=== PATIENT | female | born 1985 | race African-American/Black ===

== ENCOUNTER → 2019-07-07 | Outpatient (CLI) | payer OTHER ==
[~2019-07-07] MED LIST: CYMB1CAP4 PO; FISH1000 PO; GABA600T4 PO; MULTCAP PO; PERC5TAB12 PO; PROBCAP14 PO; VITAD1000T PO
== END ==
LOC: M LABSMTC 09:54 → EDUNIT# 10:15
PROVIDERS: ATTEND Anesthesiology
DX: Z03.818 Encounter for observation for suspected exposure to other biological agents ruled out (principal)

== ENCOUNTER 2019-07-10 07:29 | Day surgery (SDC) | payer OTHER ==
[2019-07-10] VITALS (7 sets, daily range): BP systolic 133–159; BP diastolic 68–73
[~2019-07-10] VITALS: Ht 175.3 cm; Wt 90.3 kg
[~2019-07-10 07:29] MED LIST changes: +LR 1,000 ML IV ONE; -PERC5TAB12 PO
[2019-07-10] MEDS ORDERED: ONDANSETRON 4MG/2ML VIAL As Ordered ONE (08:27)
[2019-07-10] MEDS ORDERED: LIDOCAINE 2% 100MG/5ML SDV (FOR ANES.) As Ordered ONE (08:27)
[2019-07-10] MEDS ORDERED: dexameTHASONE 4 MG/ML 1ML VIAL (J1100 PER 1MG) As Ordered ONE (08:27)
[2019-07-10] MEDS ORDERED: propofoL 200 MG/20 ML VIAL As Ordered ONE (08:27)
[2019-07-10] MEDS ORDERED: fentaNYL 250 MCG/5 ML INJECTION (J3010) As Ordered ONE (08:27)
[2019-07-10] MEDS ORDERED: ROCURONIUM BROMIDE 50 MG/5 ML VIAL As Ordered ONE ×2 (08:27→10:43)
[2019-07-10] MEDS ORDERED: MIDAZOLAM INJ 2MG/2ML VIAL (J2250 PER 1MG) As Ordered ONE (08:27)
[2019-07-10] MEDS ORDERED: fentaNYL 100 MCG/2 ML INJECTION (J3010) As Ordered ONE (09:12)
[2019-07-10] MEDS ORDERED: GABAPENTIN 300 MG CAP PO ONE ×2 (09:45→16:00)
[2019-07-10] MEDS ORDERED: ceFAZolin SOD 2 GM in IV 1 EA IV ONE ×2 (09:45→16:00)
[2019-07-10] MEDS ORDERED: PERCOCET 5MG/325MG TAB PO ONE (09:45)
[2019-07-10] MEDS ORDERED: CelecoXIB 400 MG CAP PO ONE (09:45)
[2019-07-10] MEDS ORDERED: SEVOFLURANE INHAL SOLN 250 ML BTL As Ordered ONE (10:04)
[2019-07-10] MEDS ORDERED: BACITRACIN PWD 50,000 UNITS VIAL As Ordered ONE (10:08)
[2019-07-10] MEDS ORDERED: THROMBIN SOLN 20,000 UNITS KIT As Ordered ONE (10:08)
[2019-07-10] MEDS ORDERED: BUPIVACAINE/EPIN 0.25% 30 ML VIAL As Ordered ONE (10:08)
[2019-07-10] MEDS ORDERED: BUPIVACAINE HCL 0.25% 10ML VIAL As Ordered ONE (10:22)
[2019-07-10] MEDS ORDERED: BUPIVACAINE LIPOSOME/PF 1.3% 20ML VIAL (13.3MG/ML)(EXPAREL)(C9290 PER1MG) As Ordered ONE (10:23)
[2019-07-10] MEDS ORDERED: ACETAMINOPHEN 1000MG 100ML IV BTL (OFIRMEV) (J0131 PER 10MG) As Ordered ONE (10:39)
[2019-07-10] MEDS ORDERED: SUGAMMADEX SODIUM 500 MG/5 ML VIAL (BRIDION) As Ordered ONE (10:39)
[2019-07-10] MEDS ORDERED: HYDROmorphone HCL 2 MG/ML 1ML VIAL (J1170) As Ordered ONE (10:48)
[2019-07-10] MEDS ORDERED: ePHEDrine SULFATE 25 MG/5 ML(5MG/ML) SYRINGE As Ordered ONE (12:06)
[2019-07-10] MEDS ORDERED: METOCLOPRAMIDE INJ 10MG/2ML VIAL (J2765 PER 1) IV PRN (13:45)
[2019-07-10] MEDS ORDERED: PERCOCET 5MG/325MG TAB PO PRN ×3 (13:45→14:00)
[2019-07-10] MEDS ORDERED: ONDANSETRON 4MG/2ML VIAL IV PRN (13:45)
[2019-07-10] MEDS ORDERED: MORPHINE 2 MG/ML 1ML VIAL (J2270) IV PRN (13:45)
[2019-07-10] MEDS ORDERED: LR 1,000 ML IV SCH (13:45)
[2019-07-10] MEDS ORDERED: fentaNYL 100 MCG/2 ML INJECTION (J3010) IV PRN (13:45)
[2019-07-10] MEDS: LR 1,000 ML IV SCH (14:00)
[2019-07-10] MEDS ORDERED: PROMETHAZINE INJ 25 MG/ML VIAL (J2550) IV PRN (14:00)
--- NOTE | 2019-07-10 15:23 | REP ---
REASON: L5-S1 laminectomy. Single portable lateral view of the lumbosacral spine shows the probe to be at the L5-S1 level posteriorly. Electronically Signed by Pavan Cloud DO 07/10/2019 04:06 P
[2019-07-10] MEDS ORDERED: PERC5TAB12 PO (15:51)
[2019-07-10] MEDS ORDERED: CelecoXIB (CeleBREX) 100 MG CAP PO ONE (16:00)
[2019-07-11 02:00] VITALS: BP 133/72
[2019-07-11 06:00] VITALS: BP 137/73
[2019-07-11 10:00] VITALS: BP 147/76
[2019-07-11] MEDS: LR 1,000 ML IV SCH ×2 (10:00)
--- NOTE | 2019-07-14 11:16 | RO ---
DATE OF PROCEDURE: 07/10/2019 PREOPERATIVE DIAGNOSIS: Right lower extremity radiculopathy secondary to chronic disc herniation. POSTOPERATIVE DIAGNOSIS: Right lower extremity radiculopathy secondary to chronic disc herniation. PROCEDURE PERFORMED: Right L5-S1 microdiscectomy. Modifier 22 will be appended because of increased difficulty due to adhesions and scarring, extending the surgical procedure. SURGEON: Jack Ya MD POULTRY HUSBANDMAN: JENN Weaver ANESTHESIA: General. ESTIMATED BLOOD LOSS: 50 mL, replaced with crystalloid. No complications. INDICATIONS: Kady Fairbanks is a 33-year-old female, who has had more than a year of symptoms. Had an MRI in March of 2018 that reflected a relatively massive disc herniation on the right side at L5-S1 causing deformity of "the entire right side of the spinal canal." More recent MRI shows significant resorption of much of the disc material but retained low signal disc material on the right side impinging on the traversing S1 nerve root along with nerve studies suggesting right subacute L5 radiculopathy. Consent reviewed in detail including a al discussion of the pathology involved, the procedure proposed, alternatives including doing nothing, and risks including, but not limited to, incomplete or no relief of symptoms, specifically with the chronicity of the complaint and the density of the numbness and the significant resorption of a relatively massive disc herniation, there may be nerve damage that does not get better. The patient understands. We also talked about risks of infection, need for more surgery, bleeding, blood loss, blood clots, other issues, and the patient wants to proceed. OPERATIVE COURSE: Identified in holding area. Site, side verified. Brought to the operating room. Once anesthesia was administered, she was positioned on the Yunior frame. Yunior frame elevated. Knees slightly flexed. Once I and the elevator constructor were comfortable with the patient's positioning, she was sterilely prepped, draped in usual fashion. I stood on the patient's right side. Mr. Thorne stood on the patient's left side. The line of incision was infiltrated with 0.25% Marcaine with epinephrine. I made the incision with a #10 blade, developed down through skin and subcuticular tissues to the posterior lumbar fascia, which was sharply divided off of the spinous processes of 5 and 1. Dissection continued using Bovie cautery over the lamina of 5. A divot was drilled in the lamina of 5, and a Swain-Jeremy probe was placed in the divot. A cross-table lateral x-ray was taken to verify our level. Once this was accomplished we irrigated. I placed the retractors and further flushed out the dissection, exposing L5 and S1. We brought in the sterilely draped operative microscope. I looked through oculars on the right side, Mr. Thorne through oculars on the left side. I implemented a right unilateral laminotomy of L5 extending superiorly to the bare area of 5, inferiorly to the bare area of S1. Elevated ligamentum flavum and removed it using Kerrison. This exposed the thecal sac. I attempted to sweep the traversing S1 nerve root medially. However, the S1 nerve root seemed to be elevated and tightly adhesed to posterior longitudinal ligament and disc osteophyte complex. I obtained the Malis dissectors to assist in carefully dissecting the thecal sac away from this adhesed tissue. After careful tedious dissection, I was able to further expose the tissue and access what appeared to be extruded disc material and cartilaginous endplate partially calcified, consistent with the significant chronicity. It was removed using pituitaries as well as Russell pituitaries in piecemeal fashion and needed to be carefully dissected away from soft tissue. Once that was accomplished, I explored around the area. I explored the interspace using the Russell's and regular pituitaries for any additional disc material. Bipolar cautery was utilized for hemostasis as well as thrombin Gelfoam, which was removed. This tedious dissection of a chronically extruded and adhesed disc endplate fragment required additional time in addition to expertise. The additional time at least doubled the normal time required to do this type of surgery, extending the procedure time from the usual 1 hour to approximately 2-1/2 hours. Once we irrigated, we reapproximated posterior lumbar fascia with interrupted stitch, deep dermis with interrupted stitch. Prineo dressing was applied to skin. Exparel had been injected in the soft tissues circumferentially around the wound for perioperative pain management. The patient was able to be then extubated and moved to recovery room in good condition. Mr. Thorne participated in the entirety of the case in the capacity of cutter first.
== END 2019-07-11 12:05 | disposition home or self-care (01) ==
LOC: M SDC 07:29 → M MS5PR 14:35 → M SDC 07-11 12:05
PROVIDERS: ATTEND Orthopaedic Surgery
DX: M51.27 Other intervertebral disc displacement, lumbosacral region (principal); I10 Essential (primary) hypertension; Z79.899 Other long term (current) drug therapy
CPT/HCPCS: 36415; 63030; 72100; 81025; 86850; 86900; 86901; 88304; 96374; C9290; J0131; J0690; J1100; J1170; J2250; J2405; J3010

== ENCOUNTER 2019-12-22 19:19 | Emergency (ER) | payer OTHER ==
[~2019-12-22] VITALS: Ht 175.3 cm; Wt 83.6 kg
[~2019-12-22 19:19] MED LIST changes: +D31000TA2 PO; -LR 1,000 ML IV ONE; +PERC5TAB12 PO; -VITAD1000T PO
[2019-12-22] MEDS ORDERED: CHLO125TA PO (19:35)
[2019-12-22 20:45] LABS: BASO % 0.3 % (0.0-1.0); EOS # 0.1 10^3/uL (0.0-0.5); EOS % 0.8 % (0.0-3.0); HEMATOCRIT 36.7 % (36.0-47.0); HEMOGLOBIN 12.4 g/dl (12.0-15.5); LYMPH # 2.4 10^3/uL (1.5-5.0); LYMPH % 30.7 % (24.0-44.0); MEAN CORPUSCULAR HEMOGLOBIN 30.8 pg (27.0-33.0); MEAN CORPUSCULAR HGB CONC 33.8 g/dl (32.0-36.5); MEAN CORPUSCULAR VOLUME 91.1 fl (80.0-96.0); MONO # 0.4 10^3/uL (0.0-0.8); MONO % 5.5 % (0.0-5.0); NEUTROPHILS % 62.3 % (36.0-66.0); PLATELET COUNT, AUTOMATED 244 10^3/uL (150-450); RED BLOOD COUNT 4.03 10^6/uL (4.00-5.40)
[2019-12-22] MEDS ORDERED: POTA20TA6 PO (21:50)
[2019-12-22 22:00] VITALS: BP 161/92
--- NOTE | 2019-12-23 08:07 | ECGEPIP ---
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
== END 2019-12-22 22:03 | disposition home or self-care (01) ==
LOC: M ED 19:19
DX: R00.2 Palpitations (principal); E87.6 Hypokalemia; I10 Essential (primary) hypertension; Z79.899 Other long term (current) drug therapy

== ENCOUNTER → 2021-02-07 | Outpatient (CLI) | payer OTHER ==
[~2021-02-07] MED LIST changes: +CHLO125TA PO; +GASTROGRAFIN SOLUTION 30ML (Q9963) As Ordered ONE; +ISOVUE-370 76% 100ML VIAL As Ordered ONE; +POTA20TA6 PO
--- NOTE | 2021-02-09 07:12 | REP ---
INDICATION: RUQ PAIN. COMPARISON: None. TECHNIQUE: Axial contrast-enhanced images of the abdomen using oral and 100 cc Isovue 370 intravenous contrast material with coronal and sagittal reformations. Coronal and sagittal reformations obtained. This CT examination was performed using the following dose reduction techniques: Automated exposure control, adjustment of mA and/or kv according to the patient's size, and use of iterative reconstruction technique. FINDINGS: Lung bases are clear. Visualized heart and pericardium normal. Liver, spleen, pancreas, gallbladder, bilateral adrenal glands and right kidney are normal. Left kidney includes 2.8 cm simple appearing cyst. Moderate fecal stasis is suggested. No evidence for bowel obstruction or acute inflammatory process to the visualized portions of the small and large bowel. Normal terminal ileum and appendix are identified in the visualized right lower quadrant. No ascites. No free air. No adenopathy. Abdominal aorta without aneurysm. Musculoskeletal structures are intact and without acute osseous abnormality. IMPRESSION: No acute abdominal pathology appreciated. 2.8 cm simple Bosniak 1 left renal cyst. <Electronically signed by Min Orantes > 02/09/21 0783
== END ==
LOC: M RAD 13:06
PROVIDERS: ATTEND Nurse Practitioner Family
DX: N28.1 Cyst of kidney, acquired (principal); R10.11 Right upper quadrant pain
CPT/HCPCS: 74160; Q9963; Q9967